=== PATIENT | male | born 1970 ===

== ENCOUNTER 2022-03-25 15:41 | Inpatient (IN) ==
[2022-03-25] MEDS ORDERED: IOPAMIDOL 100 ML BOTTLE IV ONE (15:42)
[2022-03-25] MEDS ORDERED: KETOROLAC 30 MG/ML VIAL IV ONE (16:47)
[2022-03-25 17:01] LABS: POC Calcium, Ionized 1.09 (1.16-1.32); POC Creatinine 1.1 (0.6-1.2); POC Potassium 3.4 (3.3-5.1)
[2022-03-25 17:32] LABS: Basophils # (Auto) 0.04 K/mcL (0.00-0.30); Basophils % (Auto) 0.2 % (0.0-2.0); Eosinophils # (Auto) 0.01 K/mcL (0.00-0.70); Eosinophils % (Auto) 0 % (0.0-7.0); Hematocrit 40.6 % (40.1-51.0); Hemoglobin 13.9 g/dL (13.7-17.5); Lymphocytes # (Auto) 2.05 K/mcL (1.50-4.80); Lymphocytes % (Auto) 10.1 % (15.5-49.0); Mean Cell Volume 90.6 fL (80.0-100.0); Mean Corpuscular HGB Conc 34.2 g/dL (31.0-36.0); Mean Platelet Volume 9.8 fL (8.8-12.5); Monocytes # (Auto) 1.49 K/mcL (0.10-0.90); Monocytes % (Auto) 7.4 % (1.0-12.0); Neutrophils % (Auto) 81.7 % (38.0-78.0); Platelet Count 233 K/mcL (140-440); RBC 4.48 M/mcL (4.63-6.08); Red Cell Distribution Width 12.8 % (11.5-14.5); WBC 20.2 K/mcL (4.5-11.0)
--- NOTE | 2022-03-25 17:45 | Cat Scan Report ---
CLINICAL INFORMATION: Right lower quadrant pain COMPARISON: None. TECHNIQUE: Following enteric contrast, 80 cc of Isovue-370 were injected intravenously, and 60 seconds later, 0.625 mm helical slices were obtained from the mid heart through the subtrochanteric regions. Following reconstruction, 2.5 mm sagittal, coronal and axial reformatted images were processed and reviewed at bone, lung and soft tissue windows. Five minutes later, 0.625 mm helical slices were obtained from the mid heart through the kidneys and viewed at soft tissue windows.The exam was performed using radiation dose optimization techniques including, but not limited to, automated exposure control, adjustment of the mA and/or kV according to patient size and use of iterative reconstruction technique. FINDINGS: The lung bases are clear. No effusions. The visualized heart is grossly normal. Abdominal images show the gallbladder and bile ducts, liver, both kidneys, adrenal glands, spleen, pancreas and aorta, including aortic branches, are normal in size, configuration and attenuation without focal lesion. There is no free air, free fluid or adenopathy. Pelvic images show normal urinary bladder, prostate and seminal vesicles. The appendix is located inferior pericecal region. It is moderately dilated with wall thickening and marked periappendiceal phlegmon. There is a 6 mm appendicolith within the appendiceal lumen. A 2 cm fluid collection adjacent to the appendiceal tip likely represents a small periappendiceal abscess. A short adjacent small bowel segment shows moderate thickening of the wall and plicae circulares folds with likely represents sympathetic inflammation. There is also small amount of fluid tracking in the right paracolic gutter. The remaining small bowel, stomach and large bowel are unremarkable. Bone windows show no osseous abnormality IMPRESSION: , Acute appendicitis. Appendix is located inferior pericecal region. 2 cm periappendiceal abscess is seen near the appendiceal tip. There is moderate phlegmon and fluid tracking into the paracolic gutter. Adjacent small bowel demonstrates sympathetic inflammation with thickening of the wall and plicae circulares folds. Interpreted and Authenticated by: Santhosh Coe 03/25/22
[2022-03-25] MEDS ORDERED: PIPERACILLIN SODIUM/TAZOBACTAM 3.375 GM in DEXTROSE 5% IN WATER 50 ML IV ONE (17:52)
--- NOTE | 2022-03-25 17:54 | Emergency Department Note ---
Abdominal Pain HPI General Chief Complaint: Abdominal Pain Stated Complaint: Abdominal pain Time Seen by Provider: 03/25/22 16:20 Source: patient Mode of arrival: ambulatory Limitations: no limitations History of Present Illness HPI Narrative: 51-year-old healthy male presents to the ER with abdominal pain primary located to the right lower quadrant. He states it started several days ago, became worse yesterday, and then last night was almost unbearable. He then started developing lower abdominal pain and he notes that he had chills last night. No nausea or vomiting. No previous history of abdominal surgeries. No hematochezia or melena. Denies dysuria or hematuria. Had episode of diarrhea yesterday. Denies history of cardiac disease. Does not smoke does not drink. Related Data Allergies Allergy/AdvReac Type Severity Reaction Status Date / Time No Known Drug Allergies Allergy Unverified 03/25/22 15:45 Review of Systems ROS ROS Narrative: Narrative: All systems ED: reviewed and negative except as stated. [facility] Narrative Patient History Narrative: Narrative: Medical/Surgical/Family History All Active Problems (Updated 03/25/22 @ 18:50 by Jessica Suarez PA-C) Acute appendicitis (Acute) Exam Narrative Narrative: General: AOx3, NAD, nontoxic appearing. Pleasant and conversant. HEENT: PERRL, EOMI, normocephalic. Moist mucous membranes. Normal facies and normal dentition. Chest: Symmetric, no pain to palpation Respiratory: Lungs clear to auscultation bilaterally. No respiratory distress. Unlabored breathing. Heart: Regular rate and rhythm, no murmurs/clicks/rubs. Abdomen: Positive right lower quadrant McBurney's rebound tenderness. No organomegaly. Extremities: Warm and well perfused. No edema. DP 2+ bilaterally. No venous s tasis. Neuro: No focal deficits. Cranial nerves II-XII grossly normal. Skin: Warm dry, no rashes or lesions, no cyanosis. Psych: Normal mood and affect Heme/Lymph: No abnormal bruising General Limitations: no limitations Course Course Course Narrative: 51-year-old male presents to the ER with abdominal pain and chills Reevaluation(s) Reevaluation #1: Obtain basic labs, CT of the abdomen pelvis to rule out appendicitis Reevaluation #2: CT of the abdomen pelvis shows acute appendicitis. White blood cell count is 20,000. I reached out to Dr. Valdez for surgical consultation Vital Signs Vital signs: Vital Signs Temperature 98.5 F 03/25/22 15:44 Pulse Rate 96 H 03/25/22 15:44 Respiratory Rate 20 03/25/22 15:44 Blood Pressure 112/81 03/25/22 15:44 Pulse Oximetry (%) 93 03/25/22 15:44 Oxygen Delivery Method 03/25/22 15:44 Temperature 98.5 F 03/25/22 15:44 Pulse Rate 96 H 03/25/22 15:44 Respiratory Rate 20 03/25/22 15:44 Blood Pressure 112/81 03/25/22 15:44 Pulse Oximetry (%) 93 03/25/22 15:44 Oxygen Delivery Method 03/25/22 15:44 MDM MDM Narrative Medical decision making narrative: Acute appendicitis Dr. Valdez has been consulted and will see the patient this evening with surgery planned for tomorrow. I have started IV Zosyn. Patient is admitted. Lab Data Result diagrams: 03/25/22 16:54 Labs: Lab Results 03/25/22 03/25/22 03/25/22 Range/Units 16:54 16:54 16:56 WBC 20.2 H (4.5-11.0) K/mcL RBC 4.48 L (4.63-6.08) M/mcL Hgb 13.9 (13.7-17.5) g/dL Hct 40.6 (40.1-51.0) % POC Hct 42.0 (41-55) MCV 90.6 (80.0-100.0) fL MCH 31.0 (26.0-34.0) pg MCHC 34.2 (31.0-36.0) g/dL RDW 12.8 (11.5-14.5) % Plt Count 233 (140-440) K/mcL MPV 9.8 (8.8-12.5) fL Immature Gran % (Auto) 0.6 H (0.0-0.5) % Neut % (Auto) 81.7 H (38.0-78.0) % Lymph % (Auto) 10.1 L (15.5-49.0) % [place] % (Auto) 7.4 (1.0-12.0) % Eos % (Auto) 0 (0.0-7.0) % Baso % (Auto) 0.2 (0.0-2.0) % Lymph # (Auto) 2.05 (1.50-4.80) K/mcL [place] # (Auto) 1.49 H (0.10-0.90) K/mcL Eos # (Auto) 0.01 (0.00-0.70) K/mcL Baso # (Auto) 0.04 (0.00-0.30) K/mcL Immature Gran # 0.13 H (0.00-0.05) K/mcl Absolute Neutrophils 16.51 H (1.80-8.00) K/mcL POC Sodium 135 (133-145) POC Potassium 3.4 (3.3-5.1) POC Chloride 99 (96-108) POC Total CO2 26.0 (22-30) POC BUN 14 (6-20) POC Creatinine 1.1 (0.6-1.2) POC Glucose 113 H (70-105) POC WB Ioniz Calcium 1.09 L (1.16-1.32) Total Bilirubin 2.3 H (0.1-1.0) mg/dL Direct Bilirubin 0.7 H (<0.3) mg/dL AST 22 (<40) U/L ALT 25 (<40) U/L Alkaline Phosphatase 113 (39-117) U/L Total Protein 7.2 (5.9-8.4) gm/dL Albumin 3.8 (3.2-5.2) gm/dL Globulin 3.4 (2.2-3.7) gm/dL Lipase 13 (7-60) U/L Discharge Plan Patient/Caregiver Discharge Instructions Pt seen by SCALP TREATMENT OPERATOR/PA only: Yes Clinical Impression: Acute appendicitis Patient Disposition: Xfer As Inpt ([facility]) Follow up with: No,PCP [Primary Care Provider] -
[2022-03-25 18:01] LABS: ALT/SGPT 25 U/L (<40); AST/SGOT 22 U/L (<40); Albumin 3.8 gm/dL (3.2-5.2); Alkaline Phosphatase 113 U/L (39-117); Bilirubin,Direct 0.7 mg/dL (<0.3); Bilirubin,Total 2.3 mg/dL (0.1-1.0); Globulin 3.4 gm/dL (2.2-3.7)
[2022-03-25] MEDS: CIPROFLOXACIN 400 MG/200 ML BAG IV SCH (20:25)
--- NOTE | 2022-03-25 20:46 | General Surgery Consult Note ---
HPI Date of Consult Consult Date: 03/25/22 Requesting physician: Jessica Suarez Primary Care Provider: PCP No Consult Narrative Patient Information: Note initiated : 03/25/22 at 8:38 pm Service Date, if different from initiated Date: [] Patient: Davis Cho a 51 y/o M admitted on for Abdominal pain. Chief Complaint: [] Michael is seen in consultation tonight with a 3-4 day history of abdominal malaise that gradually seemed to settle and isolate in the RLQ and become increasingly severe. He has had some anorexia as well but has not had any vomiting and has otherwise had normal bowel function. He presented to the ER and a CT scan was obtained demonstrating findings of Acute Appendicitis with significant phlegmon and early abscess formation in the area. He has been in good baseline health and denies any known Cardiac or Pulmonary issues. He is not on any oral anti coagulants and denies any prior abdominal surgery. He has not eaten today and has never had a past Colonoscopy. Chief complaint: RLQ Abdominal Pain Reason for consult: Acute Appendicitis cc:: CC: Review of Systems All systems: reviewed and no additional remarkable complaints except as stated Constitutional Additional comments: no recent weight loss EENT Additional comments: no changes Additional comments: no changes Cardiovascular Additional comments: no chest pain Respiratory Additional comments: no cough or SOB Gastrointestinal Additional comments: see HPI Integumentary Additional comments: no skin changes Neurological Additional comments: no changes Hematologic/Lymphatic Additional comments: no bleeding issues PFSH PFSH All Active Problems Acute appendicitis (Acute) MEDS/ALLERGIES Home Medications and Allergies Home Medications Medication Instructions Recorded Confirmed Type No Known Home Meds 03/25/22 03/25/22 History Allergies Allergy/AdvReac Type Severity Reaction Status Date / Time No Known Drug Allergies Allergy Unverified 03/25/22 15:45 Physical Examination Vital Signs Vital signs: Temp Pulse Resp BP Pulse Ox O2 Del Method 98.5 F 96 H 20 112/81 93 03/25/22 15:44 03/25/22 15:44 03/25/22 15:44 03/25/22 15:44 03/25/22 15:44 03/25/22 15:44 General physical appearance General physical exam: well developed and no distress Eyes Eye exam: normal ocular movement; negative icteric ENT ENT exam: normal pinna Head Head exam IM: Present atraumatic, normal inspection and normocephalic Neck Neck exam: trachea midline; negative no lymphadenopathy Cardiovascular Cardiovascular exam IM: Present normal rate and rhythm and RRR Respiratory Respiratory exam: normal expansion and normal respiratory effort Abdomen Abdomen: Present soft (nondistended, localized focal tenderness in the RLQ with localized peritoneal findings, remaining exam is soft, nontender and non distended) Integumentary Integumentary: Present other (normal appearing intact skin) Neurologic Neurologic: Present other (grossly intact) Psychiatric Psychiatric: Present oriented to time, oriented to person and oriented to place Results Labs Result diagrams: 03/25/22 16:54 Labs: Abnormal lab results 03/25/22 03/25/22 03/25/22 Range/Units 16:54 16:54 16:56 WBC 20.2 H (4.5-11.0) K/mcL RBC 4.48 L (4.63-6.08) M/mcL Immature Gran % (Auto) 0.6 H (0.0-0.5) % Neut % (Auto) 81.7 H (38.0-78.0) % Lymph % (Auto) 10.1 L (15.5-49.0) % [place] # (Auto) 1.49 H (0.10-0.90) K/mcL Immature Gran # 0.13 H (0.00-0.05) K/mcl Absolute Neutrophils 16.51 H (1.80-8.00) K/mcL POC Glucose 113 H (70-105) POC WB Ioniz Calcium 1.09 L (1.16-1.32) Total Bilirubin 2.3 H (0.1-1.0) mg/dL Direct Bilirubin 0.7 H (<0.3) mg/dL Diabetes panel 03/25/22 Range/Units 16:54 AST 22 (<40) U/L ALT 25 (<40) U/L Alkaline Phosphatase 113 (39-117) U/L Total Protein 7.2 (5.9-8.4) gm/dL Albumin 3.8 (3.2-5.2) gm/dL Calcium panel 03/25/22 Range/Units 16:54 Albumin 3.8 (3.2-5.2) gm/dL Adrenal panel 01/17/23 Range/Units 16:54 Total Bilirubin 2.3 H (0.1-1.0) mg/dL AST 22 (<40) U/L ALT 25 (<40) U/L Alkaline Phosphatase 113 (39-117) U/L Total Protein 7.2 (5.9-8.4) gm/dL Albumin 3.8 (3.2-5.2) gm/dL All other labs normal. A/P Assessment and plan (1) Acute appendicitis: Assessment and plan: Acute Appendicitis Issues are discussed and reviewed at length including operative and non operative approaches and recommendation for Laparosopic Appendectomy with a full review of Risks, Benefits, Potential Complications and Alternative Treatment Options are all reviewed and discussed at length Surgery is recommended but the option for a non operative antibiotic based approach is reviewed in some detail as well and he is fully aware that he can opt to decline surgery in favor of upfront IV AB therapy if he clinically improves Current plan is for admission tonight, initiation of IV ABs and IVFs with plans to proceed to the OR tomorrow for planned Laparoscopic Appendectomy. They have a good understanding of this and have indicated their in agreement with the plan and my contact information is provided should any questions or concerns arise. Status: Acute Time Spent With Patient Time: Total time spent is greater than 50% in coordination of care (as documented) at patient's floor/unit and/or counseling patient:
[2022-03-25] MEDS: metroNIDAZOLE 500 MG/100 ML BAG IV SCH (22:45)
[2022-03-25] MEDS: DEXTROSE 5%-LR 1,000 ML IV SCH (22:47)
[2022-03-26] MEDS: metroNIDAZOLE 500 MG/100 ML BAG IV SCH ×3 (05:24→22:59)
[2022-03-26] MEDS: DEXTROSE 5%-LR 1,000 ML IV SCH ×4 (05:35→22:57)
[2022-03-26] MEDS ORDERED: SCOPOLAMINE 1 PATCH PATCH TOPICAL PRN (06:39)
[2022-03-26] MEDS ORDERED: IPRATROPIUM/ALBUTEROL 3 ML AMPUL.NEB NEB PRN ×2 (06:39→11:28)
[2022-03-26 07:40] LABS: Hematocrit 36.9 % (40.1-51.0); Hemoglobin 12.6 g/dL (13.7-17.5); Mean Cell Volume 90.4 fL (80.0-100.0); Mean Corpuscular HGB Conc 34.1 g/dL (31.0-36.0); Platelet Count 208 K/mcL (140-440); RBC 4.08 M/mcL (4.63-6.08); Red Cell Distribution Width 12.7 % (11.5-14.5); WBC 14.4 K/mcL (4.5-11.0)
[2022-03-26 08:19] LABS: Blood Urea Nitrogen 15 mg/dL (6-20); Calcium 8.5 mg/dL (8.6-10.4); Carbon Dioxide 27 mmol/L (22-30); Chloride 97 mmol/L (96-108); Glomerular Filtration Rate 88; Glucose 112 mg/dL (70-105)
[2022-03-26] MEDS: CIPROFLOXACIN 400 MG/200 ML BAG IV SCH ×2 (08:30→19:15)
[2022-03-26] MEDS ORDERED: DEXAMETHASONE 10 MG/ML VIAL ONE (10:39)
[2022-03-26] MEDS ORDERED: fentaNYL 100 MCG/2 ML VIAL IV ONE (10:39)
[2022-03-26] MEDS ORDERED: ROCURONIUM 10 MG/ML ML IV ONE (10:39)
[2022-03-26] MEDS ORDERED: MIDAZOLAM 2 MG/2 ML VIAL ONE (10:39)
[2022-03-26] MEDS ORDERED: SUGAMMADEX SODIUM 200 MG/2 ML VIAL IV ONE (10:39)
[2022-03-26] MEDS ORDERED: KETOROLAC 30 MG/ML VIAL ONE (10:39)
[2022-03-26] MEDS ORDERED: LIDOCAINE HCL/PF 100 MG/5 ML SYRINGE IV ONE (10:39)
[2022-03-26] MEDS ORDERED: PROPOFOL 200 MG/20 ML VIAL IV ONE (10:39)
[2022-03-26] MEDS ORDERED: ONDANSETRON 4 MG/2 ML VIAL ONE (10:39)
[2022-03-26] MEDS ORDERED: BUPIVACAINE W/EPI 0.25% 50 ML VIAL IJ ONE (11:18)
[2022-03-26] MEDS ORDERED: HYDROmorphone 0.5 MG/0.5 ML SYRINGE IV PRN (11:28)
[2022-03-26] MEDS ORDERED: MEPERIDINE 25 MG/ML VIAL IV PRN (11:28)
[2022-03-26] MEDS ORDERED: ACETAMINOPHEN 1,000 MG/100 ML BAG IV ONE (11:28)
[2022-03-26] MEDS ORDERED: fentaNYL 100 MCG/2 ML VIAL IV PRN (11:28)
[2022-03-26] MEDS ORDERED: ONDANSETRON 4 MG/2 ML VIAL IV PRN (11:28)
--- NOTE | 2022-03-26 12:53 | Brief Operative Note ---
Brief Operative Note Date of procedure: 03/26/22 Pre-op diagnosis: Acute Appendicitis Post-op diagnosis: same Procedure: Laparoscopic Appendectomy with washout and drain placement Grafts/Implants: No Anesthesia: GETA Findings: Necrotic gangrenous Acute Appendicitis with Contained Perforation and associated Abscess Complications: none Surgeon: Rosendo Valdez Estimated blood loss (cc): 5 Specimens Removed/Pathology: other (Appendix ) Condition: stable Disposition: PACU
[2022-03-26] MEDS: HYDROmorphone 0.5 MG/0.5 ML SYRINGE IV PRN ×2 (13:39→14:42)
[2022-03-26] MEDS: KETOROLAC 15 MG/ML VIAL IV SCH ×2 (15:58→23:00)
--- NOTE | 2022-03-26 17:28 | EKG ---
[facility] Test Date: 2022-03-25 Pat Name: Davis Cho Department: ED Room: Gender: Male Instrument Tech: : 1970 Requested By: Jessica Suarez Order Number: [id number] Reading MD: Sidney García D.O. Measurements Intervals [place] Rate: 74 P: 51 [place]: 189 QRS: 32 QRSD: 101 T: 33 QT: 384 QTc: 426 Interpretive Statements Sinus rhythm Electronically Signed On 03-26-2022 17:28:12 PST by Sidney García D.O. /store/M0/[id number]/[id number]
[2022-03-26] MEDS: oxyCODONE HCL 5 MG TABLET PO PRN (19:13)
[2022-03-27] MEDS: DEXTROSE 5%-LR 1,000 ML IV SCH ×3 (05:25→23:31)
[2022-03-27] MEDS: metroNIDAZOLE 500 MG/100 ML BAG IV SCH ×3 (05:36→22:07)
[2022-03-27 06:34] LABS: Hematocrit 35.4 % (40.1-51.0); Hemoglobin 12.1 g/dL (13.7-17.5); Mean Cell Volume 90.5 fL (80.0-100.0); Mean Corpuscular HGB Conc 34.2 g/dL (31.0-36.0); Mean Platelet Volume 10.3 fL (8.8-12.5); Platelet Count 224 K/mcL (140-440); RBC 3.91 M/mcL (4.63-6.08); Red Cell Distribution Width 12.9 % (11.5-14.5); WBC 14.8 K/mcL (4.5-11.0)
[2022-03-27] MEDS: KETOROLAC 15 MG/ML VIAL IV SCH ×3 (06:43→23:28)
[2022-03-27 06:58] LABS: Blood Urea Nitrogen 10 mg/dL (6-20); Calcium 8.2 mg/dL (8.6-10.4); Carbon Dioxide 28 mmol/L (22-30); Chloride 100 mmol/L (96-108); Glomerular Filtration Rate 100; Glucose 142 mg/dL (70-105)
[2022-03-27] MEDS: CIPROFLOXACIN 400 MG/200 ML BAG IV SCH ×2 (08:17→20:45)
--- NOTE | 2022-03-27 10:46 | General Surgery Progress Note ---
SUBJECTIVE Subjective Patient information: Note initiated : 03/27/22 at 10:44 am Service Date, if different from initiated Date: [] Patient: Davis Cho 51 y/o M admitted on 03/25/22 for Abdominal pain. Chief Complaint: [] Feels better this am, passing gas, tolerating clears Constitutional Vitals: Vital Signs Temp Pulse Resp BP Pulse Ox O2 Del Method O2 Flow Rate 98.1 F 84 14 112/67 93 6 03/27/22 08:00 03/27/22 08:00 03/27/22 08:00 03/27/22 08:00 03/27/22 08:00 03/27/22 08:00 03/26/22 12:29 Period Temp Pulse Resp BP Sys/Hopkins Pulse Ox O2 Del Method O2 Flow Rate Last 24 Hr 97.4 F-100.2 F 67-84 14-21 99-121/65-76 90-98 Room Air-Simple Mask 6-6 Intake and Output 03/26/22 03/27/22 03/27/22 19:59 03:59 11:59 Intake Total 4240 2100 700 Output Total 450 1398 750 Balance 3790 702 -50 Weight 247 lb 6.4 oz 253 lb Intake & Output: Intake & Output 03/26/22 03/27/22 03/27/22 19:59 03:59 11:59 Intake Total 4240 2100 700 Output Total 450 1398 750 Balance 3790 702 -50 Weight 247 lb 6.4 oz 253 lb Intake: IV 1200 1300 300 Dextrose 5%-Lactated Ringers 1, 1000 1000 000 ml @ 125 mls/hr IV .Q8H [facility] Rx#:[id number] Oral 1440 800 400 IV - Manual Only 1600 Output: Drainage 330 48 Abdomen DASIA Drain 330 48 Void Amount 100 1350 750 Estimated Blood Loss 20 Other: Meal Lunch Percent of Meal Consumed 100% Feeding Ability Independent Urine Appearance Clear Clear Clear Urine Color Dark Yellow Bright Yellow Yellow Urine Odor Strong # Voids 1 Exam: Looks well, NAD Respiratory Respiratory exam: Present normal respiratory exam Cardiovascular Cardiovascular exam: Present RRR GI/Abdominal Additional comments: soft and non tender, non distended, dressings dry, drain is clearing - less purulent and non enteric A/P Assessment and plan (1) Acute appendicitis: Assessment and plan: POD #1 Lap Appendectomy Doing Well Advance Diet Increase Activity Plan for another 24 hours of IV ABs Status: Acute Time Spent With Patient Time: Total time spent is greater than 50% in coordination of care (as documented) at patient's floor/unit and/or counseling patient:
[2022-03-27] MEDS: METOCLOPRAMIDE 10 MG/2 ML VIAL IV PRN (16:41)
[2022-03-28] MEDS: DEXTROSE 5%-LR 1,000 ML IV SCH ×3 (02:34→18:58)
[2022-03-28] MEDS: metroNIDAZOLE 500 MG/100 ML BAG IV SCH ×2 (05:47→13:45)
[2022-03-28] MEDS: KETOROLAC 15 MG/ML VIAL IV SCH (07:16)
[2022-03-28 07:32] LABS: Hemoglobin 11.7 g/dL (13.7-17.5); Mean Corpuscular HGB Conc 34.4 g/dL (31.0-36.0); Mean Platelet Volume 9.8 fL (8.8-12.5); Platelet Count 271 K/mcL (140-440); RBC 3.82 M/mcL (4.63-6.08); Red Cell Distribution Width 13.2 % (11.5-14.5); WBC 11.1 K/mcL (4.5-11.0)
--- NOTE | 2022-03-28 07:55 | Operative Note ---
DATE OF OPERATION: 03/26/2022 PREOPERATIVE DIAGNOSIS: Acute appendicitis. POSTOPERATIVE DIAGNOSIS: Acute appendicitis. OPERATIVE PROCEDURE: Laparoscopic appendectomy with washout and drain placement. SURGEON: Rosendo Valdez M.D. ANESTHESIA: General. PREOPERATIVE MEDICATIONS: Cipro 400 mg IV and Flagyl 500 mg IV. INDICATIONS FOR PROCEDURE: The patient is a 51-year-old male who presented to the emergency room with a roughly 4- to 5-day history of increasing abdominal malaise that gradually localized to the right lower quadrant. CT scan was obtained, which demonstrated findings consistent with fairly advanced and complicated-appearing acute appendicitis with evidence of appendiceal abscess formation phlegmon and probable rupture. After full discussion of risks, benefits, potential complications, and alternative treatment options, we recommended laparoscopic appendectomy, and he wished to proceed. Issues discussed included, but not limited to bleeding, infection, cosmetic dissatisfaction, abnormal scarring, potential need for conversion to an open procedure, drain placement, injury to surrounding structures, unexpected findings, and other concerns. He gave full informed consent. PROCEDURE IN DETAIL: The patient was taken to the OR and placed supine on the OR table, placed under general anesthesia and intubated. Bilateral SCDs were applied. All pressure sensitive areas were carefully padded. Arms were tucked at the side. The abdomen was then widely prepped and draped in a sterile fashion. Procedure began with access of the peritoneal cavity utilizing a 0-degree 5 mm scope through a Visiport in the right upper abdomen. After obtaining peritoneal access, pneumoperitoneum was obtained with high-flow CO2 insufflation without difficulty. We then assessed the area of access to make sure there was no evidence of injury; none was seen. We then changed out the 0-degree scope for a 30-degree scope and placed our remaining trocars under direct vision. This included a 5 mm periumbilical trocar as well as a 5 mm left lower abdominal trocar. We then re-sited the camera to the periumbilical site and changed out the right upper abdominal 5 mm trocar to a 12 mm trocar, again under direct vision. The patient was then airplaned towards the left side and placed in slight reverse Trendelenburg. A large amount of small bowel could be seen adherent to the area of the cecum in the right lower abdomen. This was gently dissected down and away utilizing blunt gentle dissection with endoscopic Kittners, and we were able to gradually reveal a pocket of pus, which was aspirated free and what appeared to be a large, indurated, and necrotic appendix with a mid appendiceal rupture. We elevated the appendix away from surrounding structures and identified the base of the appendix just above its junction point with the cecum. We created a small window in the mesoappendix here and then transected it with sequential firings of the endovascular 35 mm Endo-PATRICK stapler under direct vision without difficulty. Then, we fired the stapler a final time to liberate the appendix from the cecum just above its junction point, again without difficulty. The appendix was placed in an EndoCatch and removed under direct vision through the right upper abdominal trocar site and sent to Pathology. The area was then gently irrigated out. We made sure there was no active bleeding or hemorrhage; none was seen. We applied some Surgicel as a topical hemostatic to the staple line, irrigated the area out copiously and extensively, and given the gross contamination that had been present, I elected to place a drain. A 19-Martiniquais round Benji drain was brought in through the left lower abdominal trocar site and positioned in the dissection bed at the base of the cecum and along the right pericolic gutter. We irrigated out a final time and made sure there was no active bleeding or hemorrhage and then made preparations for closure. The 12 mm right upper abdominal trocar was removed. We then closed the fascia here with two interrupted 0 Vicryl sutures utilizing the inlet fascial closure device. We then relieved pneumoperitoneum and removed our final trocar under direct vision without difficulty and made sure there was no active bleeding or hemorrhage; none was seen. The incisions were then closed with interrupted 3-0 Vicryl and 4-0 Monocryl sutures, respectively. Steri-Strips and sterile dressings were applied. The patient was awakened, extubated, and transferred to PACU in satisfactory condition. There were no apparent complications or issues. Sponge and instrument counts were correct. Findings were as discussed above. CECE:tori Job ID: [id number] Doc ID: [id number] Rosendo Valdez M.D.
[2022-03-28 07:56] LABS: Blood Urea Nitrogen 12 mg/dL (6-20); Carbon Dioxide 27 mmol/L (22-30); Chloride 97 mmol/L (96-108); Glomerular Filtration Rate 88; Glucose 95 mg/dL (70-105)
[2022-03-28] MEDS: CIPROFLOXACIN 400 MG/200 ML BAG IV SCH ×2 (08:53→19:59)
--- NOTE | 2022-03-28 11:16 | General Surgery Progress Note ---
SUBJECTIVE Subjective Patient information: Note initiated : 03/28/22 at 11:13 am Service Date, if different from initiated Date: [] Patient: Davis Cho 51 y/o M admitted on 03/27/22 for Abdominal pain. Chief Complaint: [] POD #2 Lap Appendectomy Low grade temps last night, feels ok today, tolerating a diet and has bowel function. Constitutional Vitals: Vital Signs Temp Pulse Resp BP Pulse Ox O2 Del Method O2 Flow Rate 99 F 82 19 122/70 92 Room Air 6 03/28/22 07:18 03/28/22 03:25 03/28/22 07:28 03/28/22 07:18 03/28/22 07:28 03/28/22 07:28 03/26/22 12:29 Period Temp Pulse Resp BP Sys/Hopkins Pulse Ox O2 Del Method O2 Flow Rate Last 24 Hr 98.3 F-99.9 F 81-91 16-20 115-128/70-78 90-94 Room Air-Room Air Intake and Output 03/27/22 03/28/22 03/28/22 19:59 03:59 11:59 Intake Total 460 1700 1780 Output Total 410 600 Balance 460 1290 1180 Weight 251 lb 12.8 oz Intake & Output: Intake & Output 03/27/22 03/28/22 03/28/22 19:59 03:59 11:59 Intake Total 460 1700 1780 Output Total 410 600 Balance 460 1290 1180 Weight 251 lb 12.8 oz Intake: IV 100 1300 1300 Dextrose 5%-Lactated Ringers 1, 1000 1000 000 ml @ 75 mls/hr IV .[id number] [facility] Rx#:[id number] Oral 360 400 480 Output: Drainage 35 Abdomen DASIA Drain 35 Void Amount 375 600 Other: Meal Dinner Breakfast Percent of Meal Consumed 100% 100% Feeding Ability Independent Urine Appearance Clear Clear Urine Color Dark [place]eba Dark Yellow Urine Odor Normal Stool Size Small # Bowel Movements 1 Exam: looks well, pleasantly conversant, NAD Respiratory Respiratory exam: Present normal respiratory exam Additional comments: normal effort, non labored Cardiovascular Cardiovascular exam: Present normal rate and rhythm and RRR GI/Abdominal Additional comments: soft and non tender, non distended trocar sites look good drain looks light serous Extremities Exam Additional comments: well perfused A/P Assessment and plan (1) Acute appendicitis: Assessment and plan: Post Lap Appendectomy for Perforated Appendicitis with abscess formation Looks well clinically but low grade temps late yesterday Continue IV ABs for now and adjust coverage if spikes additional temps Possible discharge tomorrow Status: Acute Time Spent With Patient Time: Total time spent is greater than 50% in coordination of care (as documented) at patient's floor/unit and/or counseling patient:
[2022-03-28] MEDS: oxyCODONE HCL 5 MG TABLET PO PRN (16:28)
[2022-03-28] MEDS: PIPERACILLIN SODIUM/TAZOBACTAM 3.375 GM in DEXTROSE 5% IN WATER 50 ML IV SCH (21:21)
[2022-03-29] MEDS: oxyCODONE HCL 5 MG TABLET PO PRN ×3 (00:21→20:20)
[2022-03-29] MEDS: PIPERACILLIN SODIUM/TAZOBACTAM 3.375 GM in DEXTROSE 5% IN WATER 50 ML IV SCH ×2 (03:16→09:29)
[2022-03-29] MEDS: DEXTROSE 5%-LR 1,000 ML IV SCH ×2 (04:51→13:26)
[2022-03-29 06:42] LABS: Hematocrit 36.2 % (40.1-51.0); Hemoglobin 12.4 g/dL (13.7-17.5); Mean Cell Volume 88.5 fL (80.0-100.0); Mean Corpuscular HGB Conc 34.3 g/dL (31.0-36.0); Mean Platelet Volume 9.8 fL (8.8-12.5); Platelet Count 296 K/mcL (140-440); RBC 4.09 M/mcL (4.63-6.08); Red Cell Distribution Width 13.1 % (11.5-14.5); WBC 13.9 K/mcL (4.5-11.0)
[2022-03-29 07:29] LABS: Blood Urea Nitrogen 8 mg/dL (6-20); Calcium 8.2 mg/dL (8.6-10.4); Carbon Dioxide 28 mmol/L (22-30); Chloride 95 mmol/L (96-108); Glomerular Filtration Rate 100; Glucose 106 mg/dL (70-105)
[2022-03-29] MEDS: CIPROFLOXACIN 400 MG/200 ML BAG IV SCH ×2 (08:24→20:18)
--- NOTE | 2022-03-29 10:08 | General Surgery Progress Note ---
SUBJECTIVE Subjective Patient information: Note initiated : 03/29/22 at 10:04 am Service Date, if different from initiated Date: [] Patient: Davis Cho 51 y/o M admitted on 03/27/22 for Abdominal pain. Chief Complaint: [] Low grade temps again late yesterday and not feeling as well for much of the day, passing gas and has had some stools, pain is mild and well controlled and continues to feel much improved relative to admission Constitutional Vitals: Vital Signs Temp Pulse Resp BP Pulse Ox O2 Del Method O2 Flow Rate 98.3 F 80 16 145/85 91 Room Air 6 03/29/22 08:00 03/29/22 08:00 03/29/22 08:00 03/29/22 08:00 03/29/22 08:00 03/29/22 08:00 03/26/22 12:29 Period Temp Pulse Resp BP Sys/Hopkins Pulse Ox O2 Del Method O2 Flow Rate Last 24 Hr 98.3 F-100 F 79-92 16-20 116-145/79-88 90-93 Room Air-Room Air Intake and Output 03/28/22 03/29/22 03/29/22 19:59 03:59 11:59 Intake Total 256 092 6711 Output Total 610 1400 505 Balance -510 -650 745 Weight 251 lb 12.8 oz 254 lb 6.4 oz Intake & Output: Intake & Output 03/28/22 03/29/22 03/29/22 19:59 03:59 11:59 Intake Total 826 983 8272 Output Total 610 1400 505 Balance -510 -650 745 Weight 251 lb 12.8 oz 254 lb 6.4 oz Intake: IV 177 426 2983 Dextrose 5%-Lactated Ringers 1, 1000 000 ml @ 75 mls/hr IV .[id number] [facility] Rx#:[id number] Zosyn 3.375 gm In Dextrose 5% 50 50 in Water 50 ml @ 100 mls/hr IV Q6H [facility] Rx#:[id number] Oral 500 Output: Drainage 10 5 Abdomen DASIA Drain 10 5 Void Amount 600 1400 500 Other: Meal Dinner Percent of Meal Consumed 25% Feeding Ability Independent Urine Appearance Clear Clear Urine Color Light Sheeba Yellow Urine Odor Normal Normal Exam: Continues to look non toxic, pleasantly conversant, NAD Respiratory Respiratory exam: Present normal respiratory exam Additional comments: normal effort without distress Cardiovascular Cardiovascular exam: Present normal rate and rhythm and RRR GI/Abdominal Additional comments: soft and non tender, doesn't seem distended although feels "full", drain is scant and appears non enteric, trocar sites all look well and intact Extremities Exam Additional comments: well perfused A/P Assessment and plan (1) Acute appendicitis: Assessment and plan: POD #3 Post Lap Appendectomy for Complicated Acute Appendicitis with Perforation Although he continues to look reasonably well, WBC is mildly elevated today and he has continued to have temp spikes and likely has a mild ileus Concern for evolving or potential abscess remains high, will adjust ABs and hold discharge today Re check labs in AM but if continues to have temps and/or elevated WBC by tomorrow then will likey pursue a CT Scan to assure no evidence of abscess or some other perioperative complication Issues are reviewed and discussed with him at length and he understands the rationale for continued hospitalization at this time Status: Acute Time Spent With Patient Time: Total time spent is greater than 50% in coordination of care (as documented) at patient's floor/unit and/or counseling patient:
[2022-03-29] MEDS: MEROPENEM 0.5 GM in 0.9 % SODIUM CHLORIDE 50 ML IV SCH ×3 (12:35→23:40)
[2022-03-29] MEDS: METOCLOPRAMIDE 10 MG/2 ML VIAL IV PRN (21:17)
[2022-03-30] MEDS: DEXTROSE 5%-LR 1,000 ML IV SCH ×3 (03:44→20:36)
[2022-03-30] MEDS: METOCLOPRAMIDE 10 MG/2 ML VIAL IV PRN (05:52)
[2022-03-30] MEDS: MEROPENEM 0.5 GM in 0.9 % SODIUM CHLORIDE 50 ML IV SCH ×4 (05:52→23:37)
[2022-03-30 06:53] LABS: Basophils # (Auto) 0.07 K/mcL (0.00-0.30); Basophils % (Auto) 0.5 % (0.0-2.0); Eosinophils # (Auto) 0.18 K/mcL (0.00-0.70); Eosinophils % (Auto) 1.3 % (0.0-7.0); Hemoglobin 13.3 g/dL (13.7-17.5); Lymphocytes # (Auto) 1.97 K/mcL (1.50-4.80); Lymphocytes % (Auto) 13.9 % (15.5-49.0); Mean Cell Volume 90.3 fL (80.0-100.0); Mean Corpuscular HGB Conc 34.1 g/dL (31.0-36.0); Mean Platelet Volume 9.6 fL (8.8-12.5); Monocytes % (Auto) 9.2 % (1.0-12.0); Platelet Count 361 K/mcL (140-440); RBC 4.32 M/mcL (4.63-6.08); Red Cell Distribution Width 13.4 % (11.5-14.5)
[2022-03-30 07:09] LABS: Blood Urea Nitrogen 8 mg/dL (6-20); Calcium 8.3 mg/dL (8.6-10.4); Carbon Dioxide 31 mmol/L (22-30); Chloride 95 mmol/L (96-108); Glomerular Filtration Rate 100; Glucose 119 mg/dL (70-105)
[2022-03-30 07:57] LABS: WBC 14.2 K/mcL (4.5-11.0)
--- NOTE | 2022-03-30 08:19 | General Surgery Progress Note ---
SUBJECTIVE Subjective Patient information: Note initiated : 03/30/22 at 8:13 am Service Date, if different from initiated Date: [] Patient: Davis Cho 51 y/o M admitted on 03/27/22 for Abdominal pain. Chief Complaint: [] WBC remains up this am, low grade temps continue along with some abdominal malaise, passing gas, no recent stools Constitutional Vitals: Vital Signs Temp Pulse Resp BP Pulse Ox O2 Del Method O2 Flow Rate 99.0 F 84 16 121/77 92 Room Air 6 03/30/22 03:45 03/30/22 03:45 03/30/22 03:45 03/30/22 03:45 03/30/22 03:45 03/30/22 03:45 03/26/22 12:29 Period Temp Pulse Resp BP Sys/Hopkins Pulse Ox O2 Del Method O2 Flow Rate Last 24 Hr 98.1 F-99.8 F 81-89 15-20 121-138/77-91 90-94 Room Air-Room Air Intake and Output 03/29/22 03/30/22 03/30/22 19:59 03:59 11:59 Intake Total 580 1150 250 Output Total 930 575 250 Balance -350 575 0 Weight 246 lb 4.8 oz Intake & Output: Intake & Output 03/29/22 03/30/22 03/30/22 19:59 03:59 11:59 Intake Total 580 1150 250 Output Total 930 575 250 Balance -350 575 0 Weight 246 lb 4.8 oz Intake: IV 100 1050 250 Dextrose 5%-Lactated Ringers 1, 1000 000 ml @ 75 mls/hr IV .[id number] [facility] Rx#:[id number] Merrem 0.5 gm In Sodium 100 50 50 Chloride 0.9% 50 ml @ 100 mls/ hr IV Q6 [facility] Rx#:[id number] Oral 480 100 Output: Drainage 0 Abdomen DASIA Drain 0 Drainage 5 Abdomen DASIA Drain 5 Void Amount 925 575 250 Other: Meal Pinapple from dinner tray only Percent of Meal Consumed 100% Feeding Ability Independent Urine Appearance Clear Clear Clear Urine Color Dark Yellow Light Sheeba Dark Sheeba Urine Odor Normal # Voids 1 # Unmeasured Emesis 1 Exam: Looks non toxic, conversant, NAD Respiratory Respiratory exam: Present normal respiratory exam Cardiovascular Cardiovascular exam: Present normal rate and rhythm and RRR GI/Abdominal Additional comments: soft and minimally tender, drain is scant and looks non enteric, trocar sites appear well with dressings in place Extremities Exam Additional comments: well perfused A/P Assessment and plan (1) Acute appendicitis: Status: Acute Plan POD #4 from Lap Appendectomy, washout and drain placement for perforated appendicitis With a persistently elevated WBC along with recurring temps, concern for an abscess is high Check CT A/P with IV Contrast Today Hold Diet for now Continue current IV ABs pending CT result Time Spent With Patient Time: Total time spent is greater than 50% in coordination of care (as documented) at patient's floor/unit and/or counseling patient:
[2022-03-30] MEDS ORDERED: IOPAMIDOL 100 ML BOTTLE IV ONE (08:42)
[2022-03-30] MEDS: oxyCODONE HCL 5 MG TABLET PO PRN (09:37)
[2022-03-30] MEDS: LINEZOLID 600 MG/300 ML BAG IV SCH ×2 (10:58→20:35)
[2022-03-30] MEDS ORDERED: ONDANSETRON 4 MG/2 ML VIAL IV PRN (11:05)
[2022-03-30] MEDS: BISACODYL 10 MG SUPP.RECT PR SCH (12:30)
--- NOTE | 2022-03-30 13:42 | Cat Scan Report ---
CLINICAL INFORMATION: Status post appendectomy. Elevated white blood cell count and fever. COMPARISON: Preoperative abdomen and pelvic CT five days prior 03/25/2022 TECHNIQUE: Enteric contrast was utilized. 80 cc of Isovue-370 were injected intravenously, and 50 seconds later, 0.625 mm helical slices were obtained from the mid heart through the subtrochanteric regions of the femurs. . Following reconstruction, 2.5 mm sagittal, coronal and axial reformatted images were processed and reviewed at bone, lung and soft tissue windows. Five minutes later, 0.625 mm helical slices were obtained from the mid heart through the kidneys and viewed at soft tissue windows.The exam was performed using radiation dose optimization techniques including, but not limited to, automated exposure control, adjustment of the mA and/or kV according to patient size and use of iterative reconstruction technique. FINDINGS: Small bilateral pleural effusions and subsegmental atelectasis both posterior lower lobes are new from the preoperative exam.. The visualized heart is grossly normal in size. Abdominal images show the gallbladder and bile ducts, liver, both kidneys, adrenal glands, spleen, pancreas and aorta, including aortic branches, are normal in size, configuration and attenuation without focal lesion. There is no free air or adenopathy. Pelvic images show normal urinary bladder, prostate and seminal vesicles. The appendix is surgically absent. The stomach, small and large bowel are mildly dilated bowel compatible with ileus. Few loops of small bowel in the left mid abdomen are asymmetrically dilated with mild wall thickening which is likely related to edema. Mild edema or phlegmon scattered within the mesenteric fat in the paracolic gutters. A 5.2 x 2.4 cm encapsulated fluid collection has developed in the in the right true pelvis anterior to the rectum. This may represent an abscess. A very small 1.3 cm fluid collection is seen more superiorly in the right false pelvis that is unchanged from previous exam. A drain enters the left periumbilical region extending rightward into the mesenteric cavity before ascending the right paracolic region. The tip is near the brianna hepatis. Bone windows show no osseous abnormality IMPRESSION: 5.2 x 2.4 cm encapsulated fluid collection in the right true pelvis-anterior to the rectosigmoid junction. This was not seen on the preoperative exam and may represent developing abscess. A smaller, 1.3 cm, fluid collection in the right false pelvis was seen on prior exam.. Appendectomy changes. Mild edema or phlegmon scattered within the mesenteric fat of the abdomen including the paracolic gutters. Mild atypical ileus. Interpreted and Authenticated by: Santhosh Coe 03/30/22
[2022-03-30] MEDS ORDERED: METOCLOPRAMIDE 10 MG/2 ML VIAL IV SCH (14:00)
[2022-03-30] MEDS: ONDANSETRON 4 MG/2 ML VIAL IV SCH ×2 (19:58→23:44)
[2022-03-31] MEDS: DEXTROSE 5%-LR 1,000 ML IV SCH ×3 (00:34→20:55)
[2022-03-31] MEDS: ONDANSETRON 4 MG/2 ML VIAL IV SCH ×4 (05:11→21:42)
[2022-03-31] MEDS: MEROPENEM 0.5 GM in 0.9 % SODIUM CHLORIDE 50 ML IV SCH ×4 (05:12→23:12)
[2022-03-31] MEDS: LINEZOLID 600 MG/300 ML BAG IV SCH ×2 (09:04→21:42)
[2022-03-31] MEDS: BISACODYL 10 MG SUPP.RECT PR SCH (09:09)
[2022-03-31 10:24] LABS: Blood Urea Nitrogen 9 mg/dL (6-20); Calcium 8.1 mg/dL (8.6-10.4); Carbon Dioxide 30 mmol/L (22-30); Chloride 97 mmol/L (96-108); Glomerular Filtration Rate 104; Glucose 106 mg/dL (70-105)
--- NOTE | 2022-03-31 10:45 | XRay Report ---
CLINICAL INFORMATION: eval bowel gas pattern COMPARISON: None. FINDINGS: The stomach and proximal/mid small bowel are moderately dilated with relative decompression of the distal small bowel and colon. These are compatible with partial mid small bowel obstruction. No free air or soft tissue mass IMPRESSION: Partial mid small bowel obstruction. Consider small bowel follow-through study Interpreted and Authenticated by: Santhosh Coe 03/31/22
--- NOTE | 2022-03-31 11:22 | General Surgery Progress Note ---
SUBJECTIVE Subjective Patient information: Note initiated : 03/31/22 at 11:18 am Service Date, if different from initiated Date: [] Patient: Davis Cho 51 y/o M admitted on 03/27/22 for Abdominal pain. Chief Complaint: [] POD #5 Lap Appendectomy Feels reasonably well this am, passing some gas, had as small stool yesterday, some pain but well controlled Constitutional Vitals: Vital Signs Temp Pulse Resp BP Pulse Ox O2 Del Method O2 Flow Rate 98.1 F 72 17 126/78 90 Room Air 6 03/31/22 07:26 03/31/22 07:26 03/31/22 07:26 03/31/22 07:25 03/31/22 07:26 03/31/22 07:26 03/26/22 12:29 Period Temp Pulse Resp BP Sys/Hopkins Pulse Ox O2 Del Method O2 Flow Rate Last 24 Hr 97.6 F-98.7 F 72-91 14-17 119-140/72-90 90-93 Room Air-Room Air Intake and Output 03/30/22 03/31/22 03/31/22 19:59 03:59 11:59 Intake Total 1400 1315 1050 Output Total 1000 425 Balance 094 910 2241 Weight 248 lb 12.8 oz Intake & Output: Intake & Output 03/30/22 03/31/22 03/31/22 19:59 03:59 11:59 Intake Total 1400 1315 1050 Output Total 1000 425 Balance 434 758 1706 Weight 248 lb 12.8 oz Intake: IV 1602 855 1979 Dextrose 5%-Lactated Ringers 1, 1102 837 1695 000 ml @ 100 mls/hr IV .Q10H [facility] Rx#:[id number] Merrem 0.5 gm In Sodium 100 50 50 Chloride 0.9% 50 ml @ 100 mls/ hr IV Q6 [facility] Rx#:[id number] Oral 360 Output: Void Amount 800 425 Emesis 200 Other: Urine Appearance Clear Clear Urine Color Dark Yellow Dark Sheeba Urine Odor Normal Exam: Looks well, NAD, non toxic, pleasantly conversant Respiratory Respiratory exam: Present normal respiratory exam Additional comments: no distress, non labored Cardiovascular Cardiovascular exam: Present normal rate and rhythm GI/Abdominal Additional comments: soft and non tender, remains mildly full or distended, drain appears clear trocar sites look good Extremities Exam Additional comments: well perfused A/P Assessment and plan (1) Acute appendicitis: Assessment and plan: POD #5 Lap Appendectomy with Washout and Drainage Looks well overall without fevers or temps now for over 24 hours and WBC normalizing Plain films this am continue to suggest resolving ileus vs partial SBO - continue with sips only for now and continue to increase activity Check drain Gram Stain and Culture No plans for discharge today Status: Acute Time Spent With Patient Time: Total time spent is greater than 50% in coordination of care (as documented) at patient's floor/unit and/or counseling patient:
--- NOTE | 2022-03-31 14:46 | XRay Report ---
CLINICAL INFORMATION: Verify placement of NG tube COMPARISON: None. FINDINGS: NG tip overlies the gastric body. Stomach and a few loops of proximal small bowel are mildly dilated compatible partial mid small bowel obstruction. No free air. IMPRESSION: NG tube overlies the gastric body. Partial small bowel obstruction pattern Interpreted and Authenticated by: Santhosh Coe 03/31/22
[2022-04-01] MEDS: ONDANSETRON 4 MG/2 ML VIAL IV SCH ×4 (03:34→22:06)
[2022-04-01] MEDS: DEXTROSE 5%-LR 1,000 ML IV SCH ×3 (03:34→17:44)
[2022-04-01] MEDS: MEROPENEM 0.5 GM in 0.9 % SODIUM CHLORIDE 50 ML IV SCH ×4 (05:46→23:25)
[2022-04-01] MEDS: LINEZOLID 600 MG/300 ML BAG IV SCH ×2 (08:53→20:59)
[2022-04-01] MEDS: BISACODYL 10 MG SUPP.RECT PR SCH (08:53)
--- NOTE | 2022-04-01 10:28 | XRay Report ---
CLINICAL INFORMATION: eval ileus,sbo COMPARISON: None. FINDINGS: NG tip overlies the gastric body. Stomach is decompressed. Multiple loops of mildly dilated small bowel in the left upper quadrant persists with decompression of distal small bowel and proximal colon. IMPRESSION: Improving partial small bowel obstruction pattern Interpreted and Authenticated by: Sanhtosh Coe 04/01/22
[2022-04-01] MEDS ORDERED: PANTOPRAZOLE 40 MG VIAL IV ONE (12:41)
--- NOTE | 2022-04-01 12:41 | General Surgery Progress Note ---
SUBJECTIVE Subjective Patient information: Note initiated : 04/01/22 at 12:37 pm Service Date, if different from initiated Date: [] Patient: Davis Cho 51 y/o M admitted on 03/27/22 for Abdominal pain. Chief Complaint: [] POD #6 Lap Appendectomy NGT in place, belly feels much improved overall, 800cc out via NGT, passing some gas, plain films improved this am Constitutional Vitals: Vital Signs Temp Pulse Resp BP Pulse Ox O2 Del Method O2 Flow Rate 97.7 F 75 20 143/90 93 Room Air 6 04/01/22 12:00 04/01/22 12:00 04/01/22 12:00 04/01/22 12:00 04/01/22 07:35 04/01/22 12:00 03/26/22 12:29 Period Temp Pulse Resp BP Sys/Hopkins Pulse Ox O2 Del Method O2 Flow Rate Last 24 Hr 97.7 F-98.3 F 66-85 20-20 126-143/80-90 90-93 Room Air-Room Air Intake and Output 04/01/22 04/01/22 04/01/22 03:59 11:59 19:59 Intake Total 350 600 Output Total 740.5 450 375 Balance -390.5 150 -375 Weight 251 lb 3.2 oz Intake & Output: Intake & Output 04/01/22 04/01/22 04/01/22 03:59 11:59 19:59 Intake Total 350 600 Output Total 740.5 450 375 Balance -390.5 150 -375 Weight 251 lb 3.2 oz Intake: IV 350 600 Dextrose 5%-Lactated Ringers 1, 600 000 ml @ 125 mls/hr IV .Q8H [facility] Rx#:[id number] Merrem 0.5 gm In Sodium 50 Chloride 0.9% 50 ml @ 100 mls/ hr IV Q6 [facility] Rx#:[id number] Tube Feeding 0 0 Output: Gastric Drainage [address] [place]-Sump 440 Drainage 0.5 Abdomen DASIA Drain 0.5 Void Amount 300 450 375 Other: Urine Appearance Clear Cloudy Cloudy Sediment Sediment Urine Color Dark Sheeba Dark Yellow Dark Yellow Urine Odor Normal Strong Strong Exam: Looks non toxic, pleasantly conversant Respiratory Respiratory exam: Present normal respiratory exam Additional comments: non labored Cardiovascular Cardiovascular exam: Present RRR GI/Abdominal Additional comments: soft and non tender, full but soft, trocar sites look good, JPD is scant and is removed at bedside without issue - a dry dressing is applied NGT in place and working well Extremities Exam Additional comments: well perfused A/P Assessment and plan (1) Acute appendicitis: Assessment and plan: POD #6 Lap Appendectomy Possible Post Op SBO Drain Removed Check SBFT today Continue NGT for now Status: Acute Time Spent With Patient Time: Total time spent is greater than 50% in coordination of care (as documented) at patient's floor/unit and/or counseling patient:
[2022-04-01] MEDS ORDERED: 0.9 % SODIUM CHLORIDE 10 ML SYRINGE IV PRN (18:30)
[2022-04-01] MEDS: 0.9 % SODIUM CHLORIDE 10 ML SYRINGE IV SCH (20:51)
--- NOTE | 2022-04-02 03:14 | XRay Report ---
CLINICAL INFORMATION: Small bowel obstruction COMPARISON: Plain film 04/01/2022. TECHNIQUE: Following reprographics technician imaging, water-soluble contrast was administered through indwelling NG tube. Patient was only able to tolerate small volumes and vomited during the procedure. Serial imaging was obtained for five hours and 30 minutes FINDINGS: Stomach, duodenum and jejunum are moderately dilated. The ileum and colon are relatively decompressed. Transition point of obstruction is not evident. The delayed images show small amounts of contrast in the right colon. IMPRESSION: High-grade partial small bowel obstruction of the proximal ileum. Interpreted and Authenticated by: Santhosh Coe 04/02/22
[2022-04-02] MEDS: ONDANSETRON 4 MG/2 ML VIAL IV SCH ×4 (04:37→21:36)
[2022-04-02] MEDS: DEXTROSE 5%-LR 1,000 ML IV SCH ×4 (05:52→18:49)
[2022-04-02] MEDS: MEROPENEM 0.5 GM in 0.9 % SODIUM CHLORIDE 50 ML IV SCH ×3 (05:52→17:55)
[2022-04-02 06:22] LABS: Hematocrit 38.7 % (40.1-51.0); Hemoglobin 12.8 g/dL (13.7-17.5); Mean Cell Volume 91.3 fL (80.0-100.0); Mean Corpuscular HGB Conc 33.1 g/dL (31.0-36.0); Platelet Count 511 K/mcL (140-440); RBC 4.24 M/mcL (4.63-6.08); WBC 9.4 K/mcL (4.5-11.0)
[2022-04-02 06:27] LABS: Blood Urea Nitrogen 11 mg/dL (6-20); Calcium 8.5 mg/dL (8.6-10.4); Carbon Dioxide 32 mmol/L (22-30); Chloride 99 mmol/L (96-108); Glomerular Filtration Rate 104; Glucose 103 mg/dL (70-105)
[2022-04-02] MEDS: LINEZOLID 600 MG/300 ML BAG IV SCH ×2 (09:07→21:23)
--- NOTE | 2022-04-02 09:50 | XRay Report ---
CLINICAL INFORMATION: Eval SBO and contrast passage COMPARISON: None. FINDINGS: Stomach, duodenum and jejunum are all moderately dilated bowel partial small bowel obstruction. NG tube is in stable satisfactory position the tip of the gastric body. All the contrast moved through the small bowel is now seen within the right and transverse colon.. There is no free air, soft tissue mass, organomegaly or pathologic calcification. IMPRESSION: No change in partial ileal obstruction. The enteric contrast is now removed through the point of obstruction is seen within the right colon Interpreted and Authenticated by: Santhosh Coe 04/02/22
[2022-04-02] MEDS: 0.9 % SODIUM CHLORIDE 10 ML SYRINGE IV SCH ×2 (11:34→21:32)
[2022-04-02] MEDS: BISACODYL 10 MG SUPP.RECT PR SCH (11:34)
--- NOTE | 2022-04-02 14:27 | General Surgery Progress Note ---
SUBJECTIVE Subjective Patient information: Note initiated : 04/02/22 at 1210 pm Service Date, if different from initiated Date: [] Patient: Davis Cho 51 y/o M admitted on 03/27/22 for Abdominal pain. Chief Complaint: [] POD #7 Lap Appendectomy with Post Op SBO Minimal crampy abdominal pain, passing some gas and stools, had large stools of passage contrast. Xrays this am how all contrast has cleared the small bowel into the Colon. Constitutional Vitals: Vital Signs Temp Pulse Resp BP Pulse Ox O2 Del Method O2 Flow Rate 98.2 F 76 18 136/81 90 Room Air 6 04/02/22 12:00 04/02/22 12:00 04/02/22 12:00 04/02/22 12:00 04/02/22 12:00 04/02/22 12:00 03/26/22 12:29 Period Temp Pulse Resp BP Sys/Hopkins Pulse Ox O2 Del Method O2 Flow Rate Last 24 Hr 97.3 F-98.5 F 71-81 14-22 127-136/79-88 90-92 Room Air-Room Air Intake and Output 04/02/22 04/02/22 04/02/22 03:59 11:59 19:59 Intake Total 1400 50 Output Total 1680 200 Balance -280 50 -200 Intake & Output: Intake & Output 04/02/22 04/02/22 04/02/22 03:59 11:59 19:59 Intake Total 1400 50 Output Total 1680 200 Balance -280 50 -200 Intake: IV 1350 50 Dextrose 5%-Lactated Ringers 1, 1000 000 ml @ 125 mls/hr IV .Q8H [facility] Rx#:[id number] Merrem 0.5 gm In Sodium 50 50 Chloride 0.9% 50 ml @ 100 mls/ hr IV Q6 [facility] Rx#:[id number] Oral 50 Tube Feeding 0 Output: Gastric Drainage 1430 Right Nare [place]-Sump 1430 Void Amount 250 200 Other: Urine Appearance Clear Cloudy Sediment Mucous Threads Urine Color Dark Sheeba Dark Yellow Urine Odor Strong Strong Stool Size Small Large Stool Color Brown Brown Black Green Stool Consistency Liquid Liquid Loose Loose # Bowel Movements 1 1 Exam: Looks well, non toxic, pleasantly conversant Respiratory Additional comments: Non labored, no distress Cardiovascular Cardiovascular exam: Present normal rate and rhythm and RRR GI/Abdominal Additional comments: soft and non tender, remains full, NGT in place, trocar sites all look good A/P Assessment and plan (1) Acute appendicitis: Assessment and plan: POD #7 Lap Appendectomy for perforated Acute Appendicitis with subsequent partial SBO PICC line is once again recommended and he is agreeable to that now TPN Optimize NGT Non operative mgmt for now given high likelihood of resolution but need for operative exploration remains a possibility Status: Acute Time Spent With Patient Time: Total time spent is greater than 50% in coordination of care (as documented) at patient's floor/unit and/or counseling patient:
--- NOTE | 2022-04-02 15:28 | XRay Report ---
CLINICAL INFORMATION: PICC line placement COMPARISON: None. TECHNIQUE: Portable FINDINGS: The heart size, mediastinum and pulmonary vessels are unremarkable. Right PICC line tip overlies the right atrium. NG tube is coiled in the gastric fundus. The lungs are clear. There are no effusions. The bones and soft tissues are within normal limits. IMPRESSION: No acute disease. PICC line tip overlying the right atrium. Interpreted and Authenticated by: Santhosh Coe 04/02/22
[2022-04-02] MEDS ORDERED: TPN PER PHARMACY IV SCH (16:09)
[2022-04-02] MEDS ORDERED: PANTOPRAZOLE 40 MG VIAL IV ONE (16:10)
[2022-04-02 18:09] LABS: ALT/SGPT 63 U/L (<40); AST/SGOT 46 U/L (<40); Albumin 2.6 gm/dL (3.2-5.2); Albumin/Globulin Ratio 0.8 (1.0-2.3); Alkaline Phosphatase 141 U/L (39-117); Bilirubin,Direct 0.3 mg/dL (<0.3); Bilirubin,Total 0.8 mg/dL (0.1-1.0); Blood Urea Nitrogen 11 mg/dL (6-20); Calcium 7.7 mg/dL (8.6-10.4); Carbon Dioxide 28 mmol/L (22-30); Chloride 100 mmol/L (96-108); Globulin 3.2 gm/dL (2.2-3.7); Glomerular Filtration Rate 104; Glucose 318 mg/dL (70-105); Lactate Dehydrogenase 147 U/L (135-225); Phosphorous 2.2 mg/dL (2.5-4.5); Prealbumin 19.8 mg/dL (20.0-40.0); Triglycerides 132 mg/dL (<150); Uric Acid 4.3 mg/dL (2.5-8.0)
[2022-04-03] MEDS: MEROPENEM 0.5 GM in 0.9 % SODIUM CHLORIDE 50 ML IV SCH ×5 (00:14→23:18)
[2022-04-03] MEDS: DEXTROSE 5%-LR 1,000 ML IV SCH ×4 (00:15→17:27)
[2022-04-03] MEDS: ONDANSETRON 4 MG/2 ML VIAL IV SCH ×3 (03:29→17:27)
[2022-04-03 07:38] LABS: Basophils # (Auto) 0.04 K/mcL (0.00-0.30); Basophils % (Auto) 0.4 % (0.0-2.0); Eosinophils # (Auto) 0.27 K/mcL (0.00-0.70); Eosinophils % (Auto) 2.9 % (0.0-7.0); Hemoglobin 11.2 g/dL (13.7-17.5); Lymphocytes # (Auto) 1.87 K/mcL (1.50-4.80); Lymphocytes % (Auto) 19.9 % (15.5-49.0); Mean Cell Volume 91.4 fL (80.0-100.0); Mean Corpuscular HGB Conc 32.9 g/dL (31.0-36.0); Mean Platelet Volume 9.1 fL (8.8-12.5); Monocytes # (Auto) 0.81 K/mcL (0.10-0.90); Monocytes % (Auto) 8.6 % (1.0-12.0); Neutrophils % (Auto) 67.1 % (38.0-78.0); Platelet Count 441 K/mcL (140-440); RBC 3.72 M/mcL (4.63-6.08); Red Cell Distribution Width 14.1 % (11.5-14.5); WBC 9.4 K/mcL (4.5-11.0)
[2022-04-03 08:05] LABS: ALT/SGPT 63 U/L (<40); AST/SGOT 40 U/L (<40); Albumin 2.7 gm/dL (3.2-5.2); Albumin/Globulin Ratio 0.9 (1.0-2.3); Alkaline Phosphatase 133 U/L (39-117); Bilirubin,Direct 0.3 mg/dL (<0.3); Bilirubin,Total 0.7 mg/dL (0.1-1.0); Blood Urea Nitrogen 10 mg/dL (6-20); Calcium 7.7 mg/dL (8.6-10.4); Carbon Dioxide 31 mmol/L (22-30); Chloride 100 mmol/L (96-108); Glomerular Filtration Rate 104; Glucose 96 mg/dL (70-105); Lactate Dehydrogenase 135 U/L (135-225); Phosphorous 2.8 mg/dL (2.5-4.5); Triglycerides 136 mg/dL (<150); Uric Acid 4.7 mg/dL (2.5-8.0)
[2022-04-03] MEDS ORDERED: DEXTROSE 50% 50 ML SYRINGE IV PRN (08:49)
[2022-04-03] MEDS: BISACODYL 10 MG SUPP.RECT PR SCH (09:18)
[2022-04-03] MEDS: LINEZOLID 600 MG/300 ML BAG IV SCH ×2 (09:49→20:17)
[2022-04-03] MEDS: 0.9 % SODIUM CHLORIDE 10 ML SYRINGE IV SCH ×2 (09:55→20:18)
--- NOTE | 2022-04-03 10:10 | XRay Report ---
CLINICAL INFORMATION: FOLLOW UP ALL BOWEL OBSTRUCTION COMPARISON: None. FINDINGS: NG tube in stable satisfactory position. Proximal and mid small bowel remain mildly dilated with decompression of distal small bowel. Colon contains all the enteric contrast and a normal amount of gas. There is no free air, soft tissue mass, organomegaly or pathologic calcification. IMPRESSION: Improving partial mid small bowel obstruction pattern Interpreted and Authenticated by: Santhosh Coe 04/03/22
[2022-04-03] MEDS ORDERED: POTASSIUM CHLORIDE IV SCH (11:00)
[2022-04-03] MEDS ORDERED: MAGNESIUM SULFATE IV SCH (11:00)
[2022-04-03] MEDS ORDERED: CALCIUM GLUCONATE IV SCH (11:00)
[2022-04-03] MEDS ORDERED: [UNRECOGNIZED DRUG - OTHER] IV SCH (11:00)
[2022-04-03] MEDS: INSULIN LISPRO 1 UNIT/0.01 ML UNIT SQ SCH ×2 (13:10→17:37)
--- NOTE | 2022-04-03 14:43 | General Surgery Progress Note ---
SUBJECTIVE Subjective Patient information: Note initiated : 04/03/22 at 2:38 pm Service Date, if different from initiated Date: [] Patient: Davis Cho 51 y/o M admitted on 03/27/22 for Abdominal pain. Chief Complaint: [] POD #8 Post Lap Appendectomy with Washout and Drain Placement complicated by development of a Partial SBO Feels well today, passing larger amounts of both stool and gas, belly feels far less distended. No significant pain. Constitutional Vitals: Vital Signs Temp Pulse Resp BP Pulse Ox O2 Del Method O2 Flow Rate 96.9 F L 69 16 142/84 92 Room Air 6 04/03/22 12:00 04/03/22 12:00 04/03/22 08:15 04/03/22 12:00 04/03/22 12:00 04/03/22 12:00 03/26/22 12:29 Period Temp Pulse Resp BP Sys/Hopkins Pulse Ox O2 Del Method O2 Flow Rate Last 24 Hr 96.9 F-98.2 F 69-86 16-20 124-145/72-97 90-97 Room Air-Room Air Intake and Output 04/03/22 04/03/22 04/03/22 03:59 11:59 19:59 Intake Total 1350 1400 50 Output Total 350 400 410 Balance 1000 1000 -360 Weight 245 lb 14.4 oz Intake & Output: Intake & Output 04/03/22 04/03/22 04/03/22 03:59 11:59 19:59 Intake Total 1350 1400 50 Output Total 350 400 410 Balance 1000 1000 -360 Weight 245 lb 14.4 oz Intake: IV 1350 1350 50 Dextrose 5%-Lactated Ringers 1, 1000 1000 000 ml @ 150 mls/hr IV .[id number] [facility] Rx#:[id number] Merrem 0.5 gm In Sodium 50 50 50 Chloride 0.9% 50 ml @ 100 mls/ hr IV Q6 [facility] Rx#:[id number] Oral 50 Tube Feeding 0 Output: Gastric Drainage 400 Right Nare [place]-Sump 400 Void Amount 350 410 Other: Urine Appearance Cloudy Urine Color Yellow Stool Size Small Moderate Moderate Stool Color Brown Brown Brown Stool Consistency Watery Loose Loose Loose # Voids 1 # Bowel Movements 1 Exam: Looks well, non toxic, NAD Respiratory Respiratory exam: Present normal respiratory exam Additional comments: Normal Effort without distress Cardiovascular Cardiovascular exam: Present normal rate and rhythm and RRR GI/Abdominal Additional comments: soft and non tender, non distended now, trocar sites look good, NGT in place and functional Extremities Exam Additional comments: well perfused A/P Assessment and plan (1) Acute appendicitis: Assessment and plan: POD #8 Post Lap Appendectomy with Washout and Drainage for Perforated Acute Appendicitis Post Op Partial SBO with significant improvement in symptoms over the past 24-48 hours TPN starting now which should help with Ca repletion. Re check Abdominal X Rays in AM, Continue to increase activity Status: Acute Time Spent With Patient Time: Total time spent is greater than 50% in coordination of care (as documented) at patient's floor/unit and/or counseling patient:
[2022-04-03] MEDS ORDERED: PANTOPRAZOLE 40 MG VIAL IV ONE (20:22)
[2022-04-04] MEDS: DEXTROSE 5%-LR 1,000 ML IV SCH ×5 (00:01→18:22)
[2022-04-04] MEDS: ONDANSETRON 4 MG/2 ML VIAL IV SCH ×5 (00:02→22:54)
[2022-04-04] MEDS: INSULIN LISPRO 1 UNIT/0.01 ML UNIT SQ SCH ×4 (00:08→18:03)
[2022-04-04] MEDS: MEROPENEM 0.5 GM in 0.9 % SODIUM CHLORIDE 50 ML IV SCH ×4 (05:14→23:52)
[2022-04-04 06:42] LABS: ALT/SGPT 55 U/L (<40); AST/SGOT 31 U/L (<40); Albumin 2.8 gm/dL (3.2-5.2); Albumin/Globulin Ratio 0.9 (1.0-2.3); Alkaline Phosphatase 148 U/L (39-117); Bilirubin,Direct 0.3 mg/dL (<0.3); Bilirubin,Total 0.8 mg/dL (0.1-1.0); Blood Urea Nitrogen 8 mg/dL (6-20); Calcium 7.9 mg/dL (8.6-10.4); Carbon Dioxide 29 mmol/L (22-30); Chloride 100 mmol/L (96-108); Globulin 3.2 gm/dL (2.2-3.7); Glomerular Filtration Rate 104; Glucose 109 mg/dL (70-105); Lactate Dehydrogenase 156 U/L (135-225); Phosphorous 2.6 mg/dL (2.5-4.5); Triglycerides 120 mg/dL (<150); Uric Acid 4.1 mg/dL (2.5-8.0)
[2022-04-04] MEDS: LINEZOLID 600 MG/300 ML BAG IV SCH ×2 (09:54→21:30)
[2022-04-04] MEDS: BISACODYL 10 MG SUPP.RECT PR SCH (09:55)
--- NOTE | 2022-04-04 10:33 | XRay Report ---
CLINICAL INFORMATION: FOLLOW UP ALL BOWEL OBSTRUCTION COMPARISON: 04/03/2022 FINDINGS: NG tube in stable satisfactory position. Proximal and mid small bowel remain mildly dilated with decompression of distal small bowel. Colon contains all the enteric contrast and a normal amount of gas. There is no free air, soft tissue mass, organomegaly or pathologic calcification. IMPRESSION: No change in partial mid small bowel obstruction pattern Interpreted and Authenticated by: Santhosh Coe 04/04/22
--- NOTE | 2022-04-04 12:02 | General Surgery Progress Note ---
SUBJECTIVE Subjective Patient information: Note initiated : 04/04/22 at 11:53 am Service Date, if different from initiated Date: [] Patient: Davis Cho 51 y/o M admitted on 03/27/22 for Abdominal pain. Chief Complaint: [] POD #9 Lap Appendectomy for Perforated Acute Appendicitis Continues to feel well this am with passage of gas and stool. NGT aspirates remain relatively high. Plain films this am to my review show a pattern more consistent with a mild ileus with large amounts of gas and residual contrast throughout the colon. Tolerating TPN at this time. Constitutional Vitals: Vital Signs Temp Pulse Resp BP Pulse Ox O2 Del Method O2 Flow Rate 97.0 F 68 17 132/84 96 Room Air 6 04/04/22 08:30 04/04/22 08:30 04/04/22 08:30 04/04/22 08:30 04/04/22 09:00 04/04/22 09:00 03/26/22 12:29 Period Temp Pulse Resp BP Sys/Hopkins Pulse Ox O2 Del Method O2 Flow Rate Last 24 Hr 96.9 F-98.1 F 68-81 16-17 126-147/81-89 91-96 Room Air-Room Air Intake and Output 04/03/22 04/04/22 04/04/22 19:59 03:59 11:59 Intake Total 100 350 100 Output Total 1410 1250 1375 Balance -1310 -900 -1275 Weight 247 lb 11.2 oz Intake & Output: Intake & Output 04/03/22 04/04/22 04/04/22 19:59 03:59 11:59 Intake Total 100 350 100 Output Total 1410 1250 1375 Balance -1310 -900 -1275 Weight 247 lb 11.2 oz Intake: IV 100 350 50 Merrem 0.5 gm In Sodium 100 50 50 Chloride 0.9% 50 ml @ 100 mls/ hr IV Q6 [facility] Rx#:[id number] Oral 50 Tube Feeding 0 Output: Gastric Drainage 400 300 100 Right Nare [place]-Sump 400 300 100 Void Amount 6992 527 0531 Other: Urine Appearance Clear Clear Clear Urine Color Yellow Yellow Yellow Urine Odor Normal Normal Stool Size Small Small Stool Color Brown Brown Stool Consistency Loose Loose # Bowel Movements 1 1 Exam: Looks comfortable, non toxic, no distress Respiratory Additional comments: normal effort without distress Cardiovascular Cardiovascular exam: Present RRR GI/Abdominal Additional comments: soft and seems minimally distended, non tender, dressings in place NGT in place and functional Extremities Exam Additional comments: well perfused A/P Assessment and plan (1) Acute appendicitis: Assessment and plan: POD #9 Lap Appendectomy for perforated Acute Appendicitis with washout and drainage followed by SBO/Ileus To my review the overall gas pattern on plain film seems less distended and more consistent with an ileus given large amounts of air in the colon with residual contrast throughout the colon Continue TPN for now with NGT decompression Minimize narcotic usage and maximize OOB activity Would favor plan to repeat SBFT on Thursday to see if any evidence of residual obstruction persists and continue current IV ABs to full 10 day course Status: Acute Time Spent With Patient Time: Total time spent is greater than 50% in coordination of care (as documented) at patient's floor/unit and/or counseling patient:
[2022-04-04] MEDS: 0.9 % SODIUM CHLORIDE 10 ML SYRINGE IV SCH ×2 (12:05→21:31)
[2022-04-04] MEDS ORDERED: PANTOPRAZOLE 40 MG VIAL IV ONE (12:12)
[2022-04-04] MEDS: MAGNESIUM SULFATE IV SCH (13:05)
[2022-04-04] MEDS: [UNRECOGNIZED DRUG - OTHER] IV SCH (13:05)
[2022-04-04] MEDS: CALCIUM GLUCONATE IV SCH (13:05)
[2022-04-04] MEDS: POTASSIUM CHLORIDE IV SCH (13:05)
[2022-04-04] MEDS ORDERED: FAT EMULSION 20% 250 ML in PREMIX 1 BAG IV SCH (16:00)
[2022-04-05] MEDS: INSULIN LISPRO 1 UNIT/0.01 ML UNIT SQ SCH ×5 (05:31→23:40)
[2022-04-05] MEDS: DEXTROSE 5%-LR 1,000 ML IV SCH ×4 (05:32→21:00)
[2022-04-05] MEDS: ONDANSETRON 4 MG/2 ML VIAL IV SCH ×4 (05:33→22:14)
[2022-04-05] MEDS: MEROPENEM 0.5 GM in 0.9 % SODIUM CHLORIDE 50 ML IV SCH ×4 (05:36→23:35)
[2022-04-05 06:07] LABS: Hematocrit 35.2 % (40.1-51.0); Hemoglobin 11.5 g/dL (13.7-17.5); Mean Cell Volume 92.9 fL (80.0-100.0); Mean Corpuscular HGB Conc 32.7 g/dL (31.0-36.0); Mean Platelet Volume 9.2 fL (8.8-12.5); Platelet Count 453 K/mcL (140-440); RBC 3.79 M/mcL (4.63-6.08); Red Cell Distribution Width 13.6 % (11.5-14.5)
[2022-04-05 06:31] LABS: ALT/SGPT 55 U/L (<40); AST/SGOT 33 U/L (<40); Albumin 2.6 gm/dL (3.2-5.2); Albumin/Globulin Ratio 0.7 (1.0-2.3); Alkaline Phosphatase 167 U/L (39-117); Bilirubin,Direct 0.2 mg/dL (<0.3); Bilirubin,Total 0.5 mg/dL (0.1-1.0); Blood Urea Nitrogen 9 mg/dL (6-20); Carbon Dioxide 27 mmol/L (22-30); Chloride 100 mmol/L (96-108); Globulin 3.5 gm/dL (2.2-3.7); Glomerular Filtration Rate 104; Glucose 109 mg/dL (70-105); Lactate Dehydrogenase 167 U/L (135-225); Triglycerides 121 mg/dL (<150); Uric Acid 3.5 mg/dL (2.5-8.0)
[2022-04-05 06:32] LABS: Blood Urea Nitrogen 9 mg/dL (6-20); Carbon Dioxide 26 mmol/L (22-30); Chloride 100 mmol/L (96-108); Glomerular Filtration Rate 104; Glucose 108 mg/dL (70-105)
[2022-04-05] MEDS: PANTOPRAZOLE 40 MG VIAL IV SCH (07:36)
[2022-04-05] MEDS: BISACODYL 10 MG SUPP.RECT PR SCH ×2 (07:38→09:06)
[2022-04-05] MEDS: LINEZOLID 600 MG/300 ML BAG IV SCH ×2 (09:08→20:21)
[2022-04-05] MEDS: 0.9 % SODIUM CHLORIDE 10 ML SYRINGE IV SCH ×2 (09:09→20:22)
[2022-04-05] MEDS: CALCIUM GLUCONATE IV SCH ×2 (10:45→13:38)
[2022-04-05] MEDS: [UNRECOGNIZED DRUG - OTHER] IV SCH (10:45)
[2022-04-05] MEDS: POTASSIUM CHLORIDE IV SCH ×2 (10:45→13:38)
[2022-04-05] MEDS: MAGNESIUM SULFATE IV SCH ×2 (10:45→13:38)
[2022-04-05] MEDS: [UNRECOGNIZED DRUG - OTHER] IV SCH (13:38)
--- NOTE | 2022-04-05 14:07 | General Surgery Progress Note ---
SUBJECTIVE Subjective Patient information: Note initiated : 04/05/22 at 2:04 pm Service Date, if different from initiated Date: [] Patient: Davis Cho 51 y/o M admitted on 03/27/22 for Abdominal pain. Chief Complaint: [] Principal diagnosis: - Acute appendicitis Interval history: Patient is doing well. He has had at least 3 bowel movements and is passing flatus regularly. He denies any nausea. He denies abdominal pain. His abdominal distention is symptomatically improved. X-rays this morning shows most of gas in colon with some dilated loops of small bowel but not in an obstructive pattern. Constitutional Vitals: Vital Signs Temp Pulse Resp BP Pulse Ox O2 Del Method O2 Flow Rate 97.3 F 72 18 127/86 95 Room Air 6 04/05/22 12:05 04/05/22 12:05 04/05/22 12:05 04/05/22 12:05 04/05/22 12:05 04/05/22 12:05 03/26/22 12:29 Period Temp Pulse Resp BP Sys/Hopkins Pulse Ox O2 Del Method O2 Flow Rate Last 24 Hr 97.3 F-98.7 F 63-74 16-20 117-140/72-86 92-96 Room Air-Room Air Intake and Output 04/05/22 04/05/22 04/05/22 03:59 11:59 19:59 Intake Total 425 600 50 Output Total 1125 850 300 Balance -700 -250 -250 Weight 243 lb Intake & Output: Intake & Output 04/05/22 04/05/22 04/05/22 03:59 11:59 19:59 Intake Total 425 600 50 Output Total 1125 850 300 Balance -700 -250 -250 Weight 243 lb Intake: IV 350 600 50 Intralipid 20% 250 ml In Premix 250 1 Bag @ 25 mls/hr IV TuFr@1600 [facility] Rx#:[id number] Merrem 0.5 gm In Sodium 50 50 50 Chloride 0.9% 50 ml @ 100 mls/ hr IV Q6 [facility] Rx#:[id number] Oral 75 Tube Feeding 0 Output: Gastric Drainage 325 Right Nare [place]-Sump 325 Void Amount 800 850 300 Other: Urine Appearance Clear Clear Clear Urine Color Dark Yellow Yellow Yellow Urine Odor Normal Normal Stool Size Small Moderate Stool Color Brown Brown Yellow Stool Consistency Loose Loose # Bowel Movements 1 Neck Neck exam: Present normal inspection Respiratory Respiratory exam: Present normal respiratory exam and CTAB Cardiovascular Cardiovascular exam: Present normal rate and rhythm, RRR, +S1 and +S2; Absent JVD GI/Abdominal GI/Abdominal exam: Present normal bowel sounds and soft; Absent distended or tenderness Extremities Exam Extremities exam: Present normal inspection and neurovascular intact Neurological Exam Neurological exam: Present oriented X3 and reflexes normal; Absent motor sensory deficit Psychiatric Psychiatric exam: Present normal affect and normal mood A/P Assessment and plan (1) Acute appendicitis: Status: Acute Plan Discontinue nasogastric tube Clear liquid diet Reglan 10 mg IV every 6 hours 2 view abdominal x-ray in the morning Time Spent With Patient Time: Total time spent is greater than 50% in coordination of care (as documented) at patient's floor/unit and/or counseling patient:
[2022-04-05] MEDS: METOCLOPRAMIDE 10 MG/2 ML VIAL IV SCH ×2 (17:59→23:35)
[2022-04-06] MEDS: DEXTROSE 5%-LR 1,000 ML IV SCH ×4 (04:48→23:22)
[2022-04-06] MEDS: ONDANSETRON 4 MG/2 ML VIAL IV SCH ×4 (04:49→23:22)
[2022-04-06] MEDS: INSULIN LISPRO 1 UNIT/0.01 ML UNIT SQ SCH ×4 (05:46→23:22)
[2022-04-06] MEDS: MEROPENEM 0.5 GM in 0.9 % SODIUM CHLORIDE 50 ML IV SCH ×4 (05:46→23:25)
[2022-04-06] MEDS: METOCLOPRAMIDE 10 MG/2 ML VIAL IV SCH ×4 (06:11→23:21)
[2022-04-06 07:44] LABS: Basophils # (Auto) 0.04 K/mcL (0.00-0.30); Basophils % (Auto) 0.5 % (0.0-2.0); Eosinophils % (Auto) 2.3 % (0.0-7.0); Hematocrit 41.6 % (40.1-51.0); Hemoglobin 13.9 g/dL (13.7-17.5); Lymphocytes # (Auto) 1.69 K/mcL (1.50-4.80); Lymphocytes % (Auto) 19.4 % (15.5-49.0); Mean Cell Volume 91.8 fL (80.0-100.0); Mean Corpuscular HGB Conc 33.4 g/dL (31.0-36.0); Mean Platelet Volume 9.9 fL (8.8-12.5); Monocytes # (Auto) 0.54 K/mcL (0.10-0.90); Monocytes % (Auto) 6.2 % (1.0-12.0); Neutrophils % (Auto) 70.8 % (38.0-78.0); Platelet Count 137 K/mcL (140-440); RBC 4.53 M/mcL (4.63-6.08); Red Cell Distribution Width 13.5 % (11.5-14.5); WBC 8.7 K/mcL (4.5-11.0)
[2022-04-06 07:56] LABS: Prealbumin 23.5 mg/dL (20.0-40.0)
[2022-04-06 07:57] LABS: ALT/SGPT 57 U/L (<40); AST/SGOT 32 U/L (<40); Albumin 2.8 gm/dL (3.2-5.2); Albumin/Globulin Ratio 0.8 (1.0-2.3); Alkaline Phosphatase 154 U/L (39-117); Bilirubin,Direct 0.3 mg/dL (<0.3); Bilirubin,Total 0.7 mg/dL (0.1-1.0); Blood Urea Nitrogen 10 mg/dL (6-20); Calcium 7.9 mg/dL (8.6-10.4); Carbon Dioxide 26 mmol/L (22-30); Chloride 101 mmol/L (96-108); Globulin 3.3 gm/dL (2.2-3.7); Glomerular Filtration Rate 104; Glucose 100 mg/dL (70-105); Lactate Dehydrogenase 169 U/L (135-225); Triglycerides 77 mg/dL (<150); Uric Acid 2.9 mg/dL (2.5-8.0)
[2022-04-06] MEDS: PANTOPRAZOLE 40 MG VIAL IV SCH (08:09)
[2022-04-06] MEDS: LINEZOLID 600 MG/300 ML BAG IV SCH ×2 (09:20→21:19)
[2022-04-06] MEDS: 0.9 % SODIUM CHLORIDE 10 ML SYRINGE IV SCH ×2 (09:20→21:19)
[2022-04-06] MEDS: BISACODYL 10 MG SUPP.RECT PR SCH (09:20)
[2022-04-06] MEDS: POTASSIUM CHLORIDE IV SCH (14:11)
[2022-04-06] MEDS: [UNRECOGNIZED DRUG - OTHER] IV SCH (14:11)
[2022-04-06] MEDS: MAGNESIUM SULFATE IV SCH (14:11)
[2022-04-06] MEDS: CALCIUM GLUCONATE IV SCH (14:11)
--- NOTE | 2022-04-06 14:36 | General Surgery Progress Note ---
SUBJECTIVE Subjective Patient information: Note initiated : 04/06/22 at 2:32 pm Service Date, if different from initiated Date: [] Patient: Davis Cho 51 y/o M admitted on 03/27/22 for Abdominal pain. Chief Complaint: [] Principal diagnosis: - Acute appendicitis Interval history: Patient continues to improve. He does not have any pain. He has been afebrile and his white blood count is 8.7. He had 4 bowel movements during the night and is having copious flatus. Abdominal x-rays shows some small bowel distention but he has gas extending to the rectum without any significant distention. Constitutional Vitals: Vital Signs Temp Pulse Resp BP Pulse Ox O2 Del Method O2 Flow Rate 98.3 F 74 16 117/70 96 Room Air 6 04/06/22 12:00 04/06/22 12:00 04/06/22 12:00 04/06/22 12:00 04/06/22 12:00 04/06/22 12:00 03/26/22 12:29 Period Temp Pulse Resp BP Sys/Hopkins Pulse Ox O2 Del Method O2 Flow Rate Last 24 Hr 97.2 F-98.3 F 63-83 14-24 116-142/51-86 92-98 Room Air-Room Air Intake and Output 04/06/22 04/06/22 04/06/22 03:59 11:59 19:59 Intake Total 2064 105 8559 Output Total 900 1300 400 Balance 450 -500 2197 Weight 242 lb 3.2 oz Intake & Output: Intake & Output 04/06/22 04/06/22 04/06/22 03:59 11:59 19:59 Intake Total 6466 929 2306 Output Total 900 1300 400 Balance 450 -500 2197 Weight 242 lb 3.2 oz Intake: IV 0314 426 5585 Calcium Gluconate 10 Meq 1841 Magnesium Sulfate 16.24 Meq Potassium Chloride 60 Meq Potassium Phosphate 40 Meq Infuvite Adult 10 ml Sodium Phosphate 60 Mmol In Clinimix 5 %-20% Solution 2,000 ml @ 75 mls/hr IV Q24H [facility] Rx#: [id number] Dextrose 5%-Lactated Ringers 1, 1000 706 000 ml @ 125 mls/hr IV .Q8H [facility] Rx#:[id number] Merrem 0.5 gm In Sodium 50 50 50 Chloride 0.9% 50 ml @ 100 mls/ hr IV Q6 [facility] Rx#:[id number] Oral 450 Output: Void Amount 900 1300 400 Other: Meal Breakfast Percent of Meal Consumed 100% Feeding Ability Independent Urine Appearance Clear Clear Urine Color Yellow Pale Urine Odor Normal Stool Size Small Small Small Stool Color Brown Brown Brown Green Green Stool Consistency Loose Soft Soft Loose Loose # Bowel Movements 1 1 1 ENT ENT exam: Present mucous membranes moist and normal oropharynx Neck Neck exam: Present normal inspection Respiratory Respiratory exam: Present normal respiratory exam and CTAB Cardiovascular Cardiovascular exam: Present normal rate and rhythm, RRR, +S1 and +S2; Absent JVD GI/Abdominal GI/Abdominal exam: Present soft and hyperactive bowel sounds; Absent distended Extremities Exam Extremities exam: Present normal inspection and neurovascular intact Neurological Exam Neurological exam: Present alert and oriented X3; Absent motor sensory deficit Psychiatric Psychiatric exam: Present normal affect and normal mood A/P Assessment and plan (1) Acute appendicitis: Status: Acute (2) Adynamic ileus: Status: Acute Plan Advance to regular diet Continue Reglan every 6 hours Sepsis Sepsis Identified: No Time Spent With Patient Time: Total time spent is greater than 50% in coordination of care (as documented) at patient's floor/unit and/or counseling patient:
--- NOTE | 2022-04-06 15:46 | XRay Report ---
CLINICAL INFORMATION: FOLLOW -UP OF SMALL BOWEL OBSTRUCTION COMPARISON: 04/04/2022 FINDINGS: The stool gas pattern is now unremarkable. There is no free air, soft tissue mass, organomegaly or pathologic calcification. IMPRESSION: Normal abdomen-resolution small bowel obstruction pattern Interpreted and Authenticated by: Santhosh Coe 04/06/22
[2022-04-07] MEDS: METOCLOPRAMIDE 10 MG/2 ML VIAL IV SCH ×2 (06:45→11:52)
[2022-04-07] MEDS: MEROPENEM 0.5 GM in 0.9 % SODIUM CHLORIDE 50 ML IV SCH ×2 (06:45→11:52)
[2022-04-07] MEDS: ONDANSETRON 4 MG/2 ML VIAL IV SCH ×2 (06:47→10:23)
[2022-04-07] MEDS: DEXTROSE 5%-LR 1,000 ML IV SCH ×3 (06:47→11:10)
--- NOTE | 2022-04-07 06:59 | XRay Report ---
INDICATION: FOLLOW -UP OF SMALL BOWEL OBSTRUCTION TECHNIQUE: Supine and upright abdomen. COMPARISON: Multiple previous plain film examinations. Previous CT scan dated 03/30/2022 FINDINGS:There is gas within the colon. There is persistent gas filled dilatation of jejunum. Partial mechanical small bowel obstruction or ileus is possible. There is no pneumoperitoneum. No biliary or portal venous gas. There is no pneumatosis. No focal abnormality IMPRESSION: 1. Colonic bowel gas as above 2. Persistent gas-filled dilatation of small bowel. Partial small bowel obstruction or ileus possible Interpreted and Authenticated by: Santhosh Nugent 04/07/22
[2022-04-07] MEDS: PANTOPRAZOLE 40 MG VIAL IV SCH (07:23)
[2022-04-07] MEDS: LINEZOLID 600 MG/300 ML BAG IV SCH (08:50)
[2022-04-07] MEDS: 0.9 % SODIUM CHLORIDE 10 ML SYRINGE IV SCH (08:50)
[2022-04-07] MEDS: BISACODYL 10 MG SUPP.RECT PR SCH (08:51)
--- NOTE | 2022-04-07 13:02 | General Surgery Progress Note ---
SUBJECTIVE Subjective Patient information: Note initiated : 04/07/22 at 9:58 am Service Date, if different from initiated Date: [] Patient: Davis Cho 51 y/o M admitted on 03/27/22 for Abdominal pain. Chief Complaint: [] Had increased passage of gas and stool over the weekend with evidence of clinical resolution, NGT was removed and he was started on a diet which he has done well on with no nausea or vomiting and no pain Principal diagnosis: - Acute appendicitis Constitutional Vitals: Vital Signs Temp Pulse Resp BP Pulse Ox O2 Del Method O2 Flow Rate 97 F 78 14 115/66 93 Room Air 6 04/07/22 11:57 04/07/22 11:57 04/07/22 11:57 04/07/22 11:57 04/07/22 11:57 04/07/22 11:57 03/26/22 12:29 Period Temp Pulse Resp BP Sys/Hopkins Pulse Ox O2 Del Method O2 Flow Rate Last 24 Hr 97 F-98.2 F 69-78 14-20 114-124/66-83 91-98 Room Air-Room Air Intake and Output 04/07/22 04/07/22 04/07/22 03:59 11:59 19:59 Intake Total 1581 650 Output Total 325 1400 Balance 1256 -750 Weight 246 lb 3.2 oz Intake & Output: Intake & Output 04/07/22 04/07/22 04/07/22 03:59 11:59 19:59 Intake Total 1581 650 Output Total 325 1400 Balance 1256 -750 Weight 246 lb 3.2 oz Intake: IV 1581 650 Calcium Gluconate 10 Meq 531 Magnesium Sulfate 16.24 Meq Potassium Chloride 60 Meq Potassium Phosphate 40 Meq Infuvite Adult 10 ml Sodium Phosphate 60 Mmol In Clinimix 5 %-20% Solution 2,000 ml @ 75 mls/hr IV Q24H [facility] Rx#: [id number] Dextrose 5%-Lactated Ringers 1, 1000 000 ml @ 125 mls/hr IV .Q8H [facility] Rx#:[id number] Merrem 0.5 gm In Sodium 50 50 Chloride 0.9% 50 ml @ 100 mls/ hr IV Q6 [facility] Rx#:[id number] Output: Void Amount 325 1400 Other: Urine Appearance Clear Urine Color Yellow Urine Odor Normal Stool Size Moderate Stool Color Brown Stool Consistency Soft Loose # Bowel Movements 1 Exam: looks well, nontoxic, pleasantly conversant Respiratory Respiratory exam: Present normal respiratory exam Cardiovascular Cardiovascular exam: Present RRR GI/Abdominal Additional comments: soft and non tender, non distended, trocar dressings in place A/P Assessment and plan (1) Adynamic ileus: Status: Acute Plan Post Appendectomy Clinically well Possibly home later today or tomorrow if continues to feel and do well Time Spent With Patient Time: Total time spent is greater than 50% in coordination of care (as documented) at patient's floor/unit and/or counseling patient:
[2022-04-07 16:59] LABS: Hematocrit 37.6 % (40.1-51.0); Hemoglobin 12.7 g/dL (13.7-17.5); Mean Cell Volume 90.8 fL (80.0-100.0); Mean Corpuscular HGB Conc 33.8 g/dL (31.0-36.0); Mean Platelet Volume 9.5 fL (8.8-12.5); Platelet Count 397 K/mcL (140-440); RBC 4.14 M/mcL (4.63-6.08); Red Cell Distribution Width 13.7 % (11.5-14.5); WBC 9.6 K/mcL (4.5-11.0)
== END 2022-04-07 16:00 | disposition home or self-care (01) | DRG 339 ==
LOC: ED 15:41 → MEDSUR 15:41
PROVIDERS: ADMIT Surgery Surgical Critical Care; ATTEND Surgery Surgical Critical Care